=== PATIENT | male | born 1985 | race Two or more races ===

== ENCOUNTER 2023-10-21 17:51 | Emergency (ER) | payer MEDICAID, OTHER ==
[~2023-10-21] VITALS: Ht 162.6 cm; Wt 72.7 kg
[2023-10-21 18:45] VITALS: PULSE 59; RESP 13; O2SAT 96
[2023-10-21] MEDS ORDERED: METOCLOPRAMIDE HCL 5MG/ml INJ 2ml VIAL IV ONE (18:45)
[2023-10-21] MEDS ORDERED: MORPHINE SULFATE 4 MG/ML SYR/VIAL IV ONE (18:45)
[2023-10-21] MEDS ORDERED: SODIUM CHLORIDE 0.9% 1,000 ML IV ONE (18:45)
[2023-10-21 19:20] LABS: Basophils # (auto) 0.1 10 ^3/uL (0-0.2); Eosinophils # (auto) 0.1 10 ^3/uL (0-0.8); Eosinophils % (auto) 1.2 % (0.0-7.0); Hematocrit 42.1 % (41.0-53.0); Hemoglobin 14.4 g/dL (13.5-17.5); Lymphocytes # (auto) 1.7 10 ^3/uL (0.4-5.4); Lymphocytes % (auto) 23.3 % (10.0-50.0); Mean Corpuscular Hemoglobin 32.9 pg (28.0-32.0); Mean Corpuscular Hgb Conc. 34.3 g/dL (32.0-36.0); Mean Corpuscular Volume 95.9 fL (80.0-100.0); Monocytes # (auto) 0.7 10 ^3/uL (0-1.3); Monocytes % (auto) 8.9 % (0.0-12.0); Neutrophils # (auto) 4.9 10 ^3/uL (1.6-8.6); Neutrophils % (auto) 65.6 % (37.0-80.0); Red Blood Cells 4.39 10^6/uL (4.5-5.90); Red Cell Distribution Width 12.3 % (11.8-14.3); White Blood Cell 7.4 10^3/uL (4.4-10.8)
[2023-10-21 19:41] LABS: Alanine Aminotransferase 26 U/L (7-40); Albumin 4.4 g/dL (3.2-4.8); Alkaline Phosphatase 72 U/L (46-116); Anion Gap 5 (5-15); Aspartate Aminotransferase 17 U/L (13-40); BUN/Creatinine Ratio 6.6 (10.0-20.0); Bilirubin, Total 1.4 mg/dL (0.2-1.0); Blood Urea Nitrogen 6 mg/dL (9-23); Calcium 9.9 mg/dL (8.7-10.4); Carbon Dioxide 23 mmol/L (20-30); Chloride 107 mmol/L (98-107); Glucose 153 mg/dL (74-106); Lipase 36 U/L (12-53); Potassium 4.3 mmol/L (3.5-5.1); Sodium 135 mmol/L (136-145)
[2023-10-21 20:00] VITALS: TEMP 98.1
[2023-10-21 20:10] VITALS: PULSE 58; RESP 11; O2SAT 98
[2023-10-21 21:00] VITALS: BP 144/59; PULSE 65; RESP 12; O2SAT 98
[2023-10-21] MEDS ORDERED: METO-281 PO (21:01)
[2023-10-21] MEDS ORDERED: IBUP-1456 PO (21:32)
[2023-10-21] MEDS ORDERED: ACET-1304 PO (21:32)
== END 2023-10-21 21:38 | disposition home or self-care (01) ==
LOC: ER 17:51 → EDBD 17:51 → ER 21:38
DX: E10.43 Type 1 diabetes mellitus with diabetic autonomic (poly)neuropathy (principal); K31.84 Gastroparesis; F12.10 Cannabis abuse, uncomplicated; Z90.49 Acquired absence of other specified parts of digestive tract
CPT/HCPCS: 36415; 74176; 80053; 83690; 85025; 96361; 96374; 96375; 99285; J2270; J2765; J7030

== ENCOUNTER 2024-04-14 12:51 | Inpatient (IN) | payer MEDICAID ==
[~2024-04-14] VITALS: Ht 162.6 cm; Wt 70.5 kg
[~2024-04-14 12:51] MED LIST: ACET-1304 PO; IBUP-1456 PO; METO-281 PO
[2024-04-14 13:39] LABS: Basophils # (auto) 0.1 10 ^3/uL (0-0.2); Basophils % (auto) 1.1 % (0.0-2.0); Eosinophils # (auto) 0 10 ^3/uL (0-0.8); Eosinophils % (auto) 0.6 % (0.0-7.0); Hematocrit 46.3 % (41.0-53.0); Hemoglobin 16.1 g/dL (13.5-17.5); Lymphocytes # (auto) 1.9 10 ^3/uL (0.4-5.4); Lymphocytes % (auto) 23.8 % (10.0-50.0); Mean Corpuscular Hemoglobin 32.9 pg (28.0-32.0); Mean Corpuscular Hgb Conc. 34.8 g/dL (32.0-36.0); Mean Corpuscular Volume 94.5 fL (80.0-100.0); Monocytes # (auto) 0.7 10 ^3/uL (0-1.3); Neutrophils # (auto) 5.2 10 ^3/uL (1.6-8.6); Neutrophils % (auto) 65.5 % (37.0-80.0); Nucleated Red Blood Cells % 0.2 %; Red Cell Distribution Width 12.4 % (11.8-14.3); White Blood Cell 7.9 10^3/uL (4.4-10.8)
[2024-04-14 13:44] LABS: Chloride 109 mmol/L (98-107); Sodium 138 mmol/L (136-145)
[2024-04-14 13:45] LABS: Anion Gap 8 (5-15); Carbon Dioxide 21 mmol/L (20-30)
[2024-04-14 13:50] LABS: BUN/Creatinine Ratio 12.8 (10.0-20.0); Blood Urea Nitrogen 16 mg/dL (9-23); Glucose 124 mg/dL (74-106)
[2024-04-14] MEDS: SODIUM CHLORIDE 0.9% 1,000 ML IVB ONE (13:50)
[2024-04-14] MEDS: PROCHLORPERAZINE EDISYLATE 5 MG/ML 2ML VIAL IV ONE (13:57)
[2024-04-14] MEDS: PANTOPRAZOLE 40 MG/10 ML VIAL INJ IV ONE ×2 (13:57→15:45)
[2024-04-14] MEDS: HYDROmorphone HCL 2 MG/ML VL/or syr IV ONE (13:58)
[2024-04-14 14:00] VITALS: PULSE 90; RESP 18; O2SAT 100
[2024-04-14] MEDS ORDERED: TEMAZEPAM 15 MG CAP PO PRN (15:00)
[2024-04-14] MEDS ORDERED: DOCUSATE SOD 100 MG CAP PO PRN (15:00)
[2024-04-14] MEDS ORDERED: MORPHINE SULFATE INJ 2 MG/ml SYRG IV PRN (15:00)
[2024-04-14] MEDS ORDERED: NITROGLYCERIN 0.4 MG SL TAB SL PRN (15:00)
[2024-04-14] MEDS ORDERED: ONDANSETRON HCL 4 MG/2 ML VIAL IV PRN (15:00)
[2024-04-14] MEDS: METOCLOPRAMIDE HCL 5MG/ml INJ 2ml VIAL IV ONE (15:45)
[2024-04-14] MEDS: HYDROmorphone HCL 2 MG/ML VL/or syr IV PRN (16:01)
[2024-04-14] MEDS: METOCLOPRAMIDE HCL 5MG/ml INJ 2ml VIAL IV SCH (17:35)
[2024-04-14] MEDS: DICYCLOMINE HCL 10 MG CAP PO SCH (17:36)
[2024-04-14] MEDS: SODIUM CHLORIDE 0.9% 1,000 ML IV SCH ×2 (17:36→18:05)
[2024-04-14 22:00] VITALS: BP 119/80; PULSE 78; RESP 18; TEMP 97.8; O2SAT 100
[2024-04-14 22:02] VITALS: PULSE 68; RESP 18; O2SAT 98
[2024-04-15 01:00] VITALS: BP 115/81; PULSE 68; RESP 18; TEMP 97.6; O2SAT 98
[2024-04-15 05:00] VITALS: BP 113/61; PULSE 60; RESP 19; TEMP 98.2; O2SAT 100
[2024-04-15] MEDS ORDERED: HYDR-4798 PO (05:49)
[2024-04-15] MEDS ORDERED: PERCOT PO (06:18)
[2024-04-15 08:00] VITALS: PULSE 66; RESP 18; O2SAT 99
[2024-04-15] MEDS ORDERED: DEXTROSE (50%) 50ML SYRG IV PRN (08:45)
[2024-04-15] MEDS: PANTOPRAZOLE 40 MG/10 ML VIAL INJ IV SCH (09:59)
[2024-04-15] MEDS: InsuLIN REG 1unit/0.01ml Soln (100units/ml) SC SCH (11:30)
[2024-04-15 11:49] LABS: Urine Bacteria None Seen /hpf (None Seen)
[2024-04-15 12:20] LABS: Amphetamine Screen, Urine Neg (NEGATIVE); Barbiturate Scree,Urine Neg (NEGATIVE); Benzodiazephine Screen, Urine Neg (NEGATIVE); Cannabinoid Screen, Urine Pos (NEGATIVE); Cocaine Screen, Urine Neg (NEGATIVE); Opiate Scree,Urine Neg (NEGATIVE); Phencyclidine Screen, Urine Neg (NEGATIVE)
[2024-04-15] MEDS: ACCU-CHEK COMFORT CURVE STRIP VI SCH (12:20)
[2024-04-15 12:28] LABS: Urine Blood Negative /uL (Negative); Urine Clarity Clear (Clear); Urine Color Light-Yellow (Yellow); Urine Hyaline Cast FEW /lpf (0 - 2); Urine Mucus FEW (None Seen); Urine Protein, UAD Negative (Negative); Urine Specific Gravity 1.023 (1.001-1.035); Urine Urobilinogen Normal (Negative); Urine WBC 6 /hpf (0 - 3); Urine pH 5.5 (5.0-9.0)
[2024-04-15 13:11] VITALS: BP 114/73; PULSE 65; RESP 18; TEMP 98; O2SAT 99
[2024-04-15 16:16] VITALS: BP 143/79; PULSE 75; RESP 16; TEMP 98.5; O2SAT 99
[2024-04-15 16:42] LABS: Basophils # (auto) 0 10 ^3/uL (0-0.2); Basophils % (auto) 0.6 % (0.0-2.0); Eosinophils # (auto) 0 10 ^3/uL (0-0.8); Eosinophils % (auto) 0.5 % (0.0-7.0); Hematocrit 39.4 % (41.0-53.0); Hemoglobin 13.2 g/dL (13.5-17.5); Lymphocytes # (auto) 1.4 10 ^3/uL (0.4-5.4); Lymphocytes % (auto) 20.3 % (10.0-50.0); Mean Corpuscular Hemoglobin 32.9 pg (28.0-32.0); Mean Corpuscular Hgb Conc. 33.4 g/dL (32.0-36.0); Mean Corpuscular Volume 98.3 fL (80.0-100.0); Monocytes # (auto) 0.5 10 ^3/uL (0-1.3); Monocytes % (auto) 6.8 % (0.0-12.0); Neutrophils # (auto) 4.9 10 ^3/uL (1.6-8.6); Neutrophils % (auto) 71.8 % (37.0-80.0); Nucleated Red Blood Cells % 0.1 %; Red Blood Cells 4.01 10^6/uL (4.5-5.90); White Blood Cell 6.8 10^3/uL (4.4-10.8)
[2024-04-15 17:05] LABS: Alanine Aminotransferase 18 U/L (7-40); Albumin 4.1 g/dL (3.2-4.8); Alkaline Phosphatase 62 U/L (46-116); Anion Gap 16 (5-15); Aspartate Aminotransferase 12 U/L (13-40); BUN/Creatinine Ratio 13.8 (10.0-20.0); Blood Urea Nitrogen 12 mg/dL (9-23); Calcium 9.4 mg/dL (8.5-10.1); Carbon Dioxide 11 mmol/L (20-30); Chloride 111 mmol/L (98-107); Cholesterol 111 mg/dL (< 200); Glucose 91 mg/dL (74-106); LDL Cholesterol 62 mg/dL (< 100); Potassium 4.3 mmol/L (3.5-5.1); Sodium 138 mmol/L (136-145); Triglycerides 67 mg/dL (< 150)
[2024-04-15 17:06] LABS: Bilirubin, Total 1.3 mg/dL (0.2-1.0); HDL Cholesterol 30 mg/dL (40-59)
[2024-04-15 18:29] VITALS: BP 110/62; PULSE 78; RESP 17; TEMP 97.8; O2SAT 99
[2024-04-15 18:31] LABS: Lipase 22 U/L (12-53)
== END 2024-04-15 18:52 | disposition home or self-care (01) | DRG 424 ==
LOC: ER 12:51 → OVERFLOW 14:54 → EAST 20:40
PROVIDERS: ADMIT Internal Medicine Geriatric Medicine; ATTEND Internal Medicine Geriatric Medicine
DX: E21.3 Hyperparathyroidism, unspecified (principal); E11.43 Type 2 diabetes mellitus with diabetic autonomic (poly)neuropathy; K31.84 Gastroparesis; E11.65 Type 2 diabetes mellitus with hyperglycemia; Z79.899 Other long term (current) drug therapy; Z83.3 Family history of diabetes mellitus; Z79.4 Long term (current) use of insulin
CPT/HCPCS: 36415; 74176; 80048; 80053; 80061; 80307; 81001; 82010; 82962; 83036; 83690; 83970; 84439; 84443; 84484; 85025; 87086; G0378

== ENCOUNTER 2024-05-06 16:27 | Emergency (ER) | payer MEDICAID ==
[~2024-05-06 16:27] MED LIST changes: -ACET-1304 PO; -METO-281 PO; +PERCOT PO
== END 2024-05-06 17:26 | disposition left against medical advice (07) ==
LOC: ER 16:27
DX: Z76.0 Encounter for issue of repeat prescription (principal); Z53.21 Procedure and treatment not carried out due to patient leaving prior to being seen by health care provider

== ENCOUNTER 2024-07-08 11:55 | Inpatient (IN) | payer MEDICAID ==
[~2024-07-08] VITALS: Ht 175.3 cm; Wt 86.4 kg
[2024-07-08 13:00] LABS: Basophils # (auto) 0 10 ^3/uL (0-0.2); Basophils % (auto) 0.4 % (0.0-2.0); Eosinophils # (auto) 0 10 ^3/uL (0-0.8); Eosinophils % (auto) 0.3 % (0.0-7.0); Hematocrit 44.4 % (41.0-53.0); Lymphocytes # (auto) 0.7 10 ^3/uL (0.4-5.4); Lymphocytes % (auto) 6.5 % (10.0-50.0); Mean Corpuscular Hemoglobin 32.7 pg (28.0-32.0); Mean Corpuscular Hgb Conc. 33.8 g/dL (32.0-36.0); Mean Corpuscular Volume 96.8 fL (80.0-100.0); Monocytes # (auto) 0.7 10 ^3/uL (0-1.3); Monocytes % (auto) 7.1 % (0.0-12.0); Neutrophils # (auto) 8.7 10 ^3/uL (1.6-8.6); Neutrophils % (auto) 85.7 % (37.0-80.0); Nucleated Red Blood Cells % 0.1 %; Platelet Count (auto) 210 10^3/uL (140-450); Red Blood Cells 4.59 10^6/uL (4.5-5.90); Red Cell Distribution Width 12.8 % (11.8-14.3); White Blood Cell 10.1 10^3/uL (4.4-10.8)
[2024-07-08] MEDS: SODIUM CHLORIDE 0.9% 1,000 ML IV ONE ×2 (13:11→14:14)
[2024-07-08] MEDS: ONDANSETRON HCL 4 MG/2 ML VIAL IV ONE (13:11)
[2024-07-08] MEDS: MORPHINE SULFATE 4 MG/ML SYR/VIAL IV ONE (13:12)
[2024-07-08 13:39] LABS: Chloride 105 mmol/L (98-107); Potassium 4.1 mmol/L (3.5-5.1); Sodium 137 mmol/L (136-145)
[2024-07-08 13:40] LABS: Anion Gap 11 (5-15); Carbon Dioxide 21 mmol/L (20-31)
[2024-07-08 13:45] LABS: BUN/Creatinine Ratio 4.5 (10.0-20.0); Blood Urea Nitrogen 5 mg/dL (9-23); Glucose 257 mg/dL (74-106)
[2024-07-08] MEDS ORDERED: DOCUSATE SOD 100 MG CAP PO PRN (14:45)
[2024-07-08] MEDS ORDERED: ACETAMINOPHEN 325 MG TAB PO PRN (14:45)
[2024-07-08] MEDS ORDERED: DEXTROSE (50%) 50ML SYRG IV PRN (15:00)
[2024-07-08] MEDS ORDERED: NITROGLYCERIN 0.4 MG SL TAB SL PRN (16:15)
[2024-07-08] MEDS ORDERED: MORPHINE SULFATE INJ 2 MG/ml SYRG IV PRN (16:15)
[2024-07-08] MEDS: HYDROcodone-ACET 5/325MG TAB PO PRN (17:09)
[2024-07-08] MEDS: SODIUM CHLORIDE 0.9% 1,000 ML IV SCH (20:44)
[2024-07-08] MEDS: ACCU-CHEK COMFORT CURVE STRIP VI SCH (20:45)
[2024-07-08] MEDS: InsuLIN REG 1unit/0.01ml Soln (100units/ml) SC SCH (20:54)
[2024-07-08] MEDS: MORPHINE SULFATE INJ 2 MG/ml SYRG IV PRN (20:55)
[2024-07-08] MEDS: ONDANSETRON HCL 4 MG/2 ML VIAL IV PRN (20:55)
[2024-07-09] VITALS (9 sets, daily range): BP systolic 122–158; BP diastolic 75–96; PULSE 54–73; RESP 15–18; TEMP 98.2–99; O2SAT 98–100
[2024-07-09] MEDS: DICYCLOMINE HCL (10MG/ML) 2 ML AMPULE IM ONE (10:45)
[2024-07-09] MEDS: METOCLOPRAMIDE HCL 5MG/ml INJ 2ml VIAL IV ONE (11:07)
[2024-07-09] MEDS: SODIUM CHLORIDE 0.9% 1,000 ML IV SCH (11:15)
[2024-07-09 12:44] LABS: Basophils # (auto) 0 10 ^3/uL (0-0.2); Basophils % (auto) 0.5 % (0.0-2.0); Eosinophils # (auto) 0 10 ^3/uL (0-0.8); Eosinophils % (auto) 0.8 % (0.0-7.0); Hematocrit 37.4 % (41.0-53.0); Hemoglobin 13.1 g/dL (13.5-17.5); Lymphocytes # (auto) 0.9 10 ^3/uL (0.4-5.4); Lymphocytes % (auto) 18.6 % (10.0-50.0); Mean Corpuscular Hemoglobin 33.1 pg (28.0-32.0); Mean Corpuscular Hgb Conc. 34.9 g/dL (32.0-36.0); Mean Corpuscular Volume 94.7 fL (80.0-100.0); Monocytes # (auto) 0.5 10 ^3/uL (0-1.3); Monocytes % (auto) 11.2 % (0.0-12.0); Neutrophils # (auto) 3.4 10 ^3/uL (1.6-8.6); Neutrophils % (auto) 68.9 % (37.0-80.0); Platelet Count (auto) 176 10^3/uL (140-450); Red Blood Cells 3.95 10^6/uL (4.5-5.90); Red Cell Distribution Width 12.5 % (11.8-14.3); White Blood Cell 4.9 10^3/uL (4.4-10.8)
[2024-07-09 12:56] LABS: Alanine Aminotransferase 36 U/L (7-40); Albumin 4.4 g/dL (3.2-4.8); Alkaline Phosphatase 73 U/L (46-116); Anion Gap 6 (5-15); Aspartate Aminotransferase 21 U/L (13-40); BUN/Creatinine Ratio 9.3 (10.0-20.0); Blood Urea Nitrogen 9 mg/dL (9-23); Calcium 10.1 mg/dL (8.7-10.4); Carbon Dioxide 26 mmol/L (20-31); Chloride 105 mmol/L (98-107); Glucose 175 mg/dL (74-106); Sodium 137 mmol/L (136-145)
[2024-07-09 12:57] LABS: Bilirubin, Total 0.9 mg/dL (0.2-1.0); Total Protein 6.7 g/dL (5.7-8.2)
[2024-07-09] MEDS ORDERED: METOCLOPRAMIDE HCL 5MG/ml INJ 2ml VIAL IV SCH (14:00)
[2024-07-09 14:40] LABS: Urine Bacteria None Seen /hpf (None Seen)
[2024-07-09 14:56] LABS: Urine Blood Negative /uL (Negative); Urine Clarity Clear (Clear); Urine Color Yellow (Yellow); Urine Mucus FEW (None Seen); Urine Protein, UAD 1+ (Negative); Urine Urobilinogen 12 mg/dL (Negative); Urine WBC 1 /hpf (0 - 3)
[2024-07-09 15:20] LABS: Amphetamine Screen, Urine Neg (NEGATIVE); Benzodiazephine Screen, Urine Neg (NEGATIVE)
[2024-07-09 15:21] LABS: Barbiturate Scree,Urine Neg (NEGATIVE); Cannabinoid Screen, Urine Pos (NEGATIVE); Cocaine Screen, Urine Neg (NEGATIVE); Opiate Scree,Urine Pos (NEGATIVE); Phencyclidine Screen, Urine Neg (NEGATIVE)
[2024-07-09 19:51] LABS: Free T3 3.16 pg/mL (2.3-4.2); Free T4 (Free Thyroxine) 1.03 ng/dL (0.89-1.76)
[2024-07-09] MEDS: ONDANSETRON HCL 4 MG/2 ML VIAL IV SCH (21:51)
[2024-07-10 01:00] VITALS: BP 156/94; PULSE 51; RESP 18; TEMP 98.1; O2SAT 100
[2024-07-10] MEDS: ERGOCALCIFEROL 50,000 UNIT(1.25MG) CAP PO SCH (01:52)
[2024-07-10] MEDS: METOCLOPRAMIDE 10 mg/10ml ORAL soln PO SCH ×2 (01:52→09:11)
[2024-07-10] MEDS: ENOXAPARIN SOD 40 MG/0.4 ML SYRINGE SC ONE (01:52)
[2024-07-10] MEDS: INSULIN LANTUS (GLARGINE) 1 /0.01ml (100units/ml) SC SCH (06:53)
[2024-07-10 07:30] VITALS: RESP 16
[2024-07-10 09:00] VITALS: BP 145/89; PULSE 66; RESP 20; TEMP 99.3; O2SAT 100
[2024-07-10 12:55] VITALS: BP 153/85; PULSE 71; RESP 20; TEMP 99.1; O2SAT 100
[2024-07-10] MEDS ORDERED: ONDA-155 PO (14:58)
[2024-07-10] MEDS ORDERED: METO5TAB87 PO (14:58)
[2024-07-10 16:40] VITALS: BP 154/89; PULSE 69; RESP 15; TEMP 98.9; O2SAT 99
[2024-07-10 16:44] VITALS: BP 161/100; PULSE 67; RESP 20; TEMP 99; O2SAT 100
[2024-07-10] MEDS ORDERED: ENOXAPARIN SOD 40 MG/0.4 ML SYRINGE SC SCH (17:30)
== END 2024-07-10 17:44 | disposition home or self-care (01) | DRG 48 ==
LOC: EDBD 11:55 → ER 11:55 → WEST WING 16:07 → OVERFLOW 16:07 → WEST WING 16:08
PROVIDERS: ADMIT Internal Medicine; ATTEND Internal Medicine
DX: E10.43 Type 1 diabetes mellitus with diabetic autonomic (poly)neuropathy (principal); E05.90 Thyrotoxicosis, unspecified without thyrotoxic crisis or storm; K31.84 Gastroparesis; E10.65 Type 1 diabetes mellitus with hyperglycemia; I10 Essential (primary) hypertension; Z83.3 Family history of diabetes mellitus; Z79.899 Other long term (current) drug therapy; Z79.4 Long term (current) use of insulin; E83.52 Hypercalcemia
CPT/HCPCS: 36415; 74018; 80048; 80053; 80307; 81001; 82306; 82607; 82962; 83036; 83690; 84439; 84443; 84481; 84484; 85025; 93005; 96361; 96374; 96375; G0378; J1815; J2405